=== PATIENT | female | born 1990 | race Caucasian/White ===

== ENCOUNTER 2020-06-12 06:20 | Emergency (ER) | payer MEDICAID, SELFPAY ==
--- NOTE | 2020-06-12 06:48 | ED.SEIZURE ---
HPI - Seizure General Stated Complaint: seizure Time Seen by Provider: 06/12/20 06:48 Source: patient Mode of arrival: ambulatory Limitations: no limitations History of Present Illness HPI Narrative: ran out of carbamezapine x 2 days, missed Neurology appointments has seizures in her sleep, here asking for refills, no other acute isssues, notes she did well when on medications complaint: seizure Onset (ago): hour(s) Description of Episode: loss of consciousness and tonic-clonic movement -: minutes(s) Trauma: No Seizure History: Yes Place: Home Possible Precipitating Event: medication (ran out of her carbamazepine x 2 days) Associated symptoms: denies other symptoms Treatments prior to arrival: none Related Data Previous Rx's Medication Instructions Recorded carbamazepine 200 mg PO BID #60 tab 06/12/20 Allergies Allergy/AdvReac Type Severity Reaction Status Date / Time No Known Allergies Allergy Unknown Verified 06/12/20 06:51 Review of Systems Review of Systems: Constitutional : No Weight loss, No Fever, No Chills, No Fatigue, No Malaise ENT/Mouth : No sore throat, No Rhinorrhea Eyes: No Eye Pain, No Swelling, No Redness Cardiovascular : No Chest Pain, No SOB, No Dyspnea on Exertion, No Orthopnea, No Edema, No Palpitations Respiratory : No Cough, No Sputum, No Wheezing Gastrointestinal : No Nausea, No Vomiting, No Diarrhea, No Constipation, No abdominal Pain Genitourinary : No Dysuria, No Urinary Frequency, No Hematuria, Musculoskeletal : No joint pain, No Myalgias, No Joint Swelling Skin : No Skin Lesions, No rash Neuro : No Weakness, No Numbness, No Dizziness, No Headache Psych : No Anxiety/Panic, No Depression All other systems reviewed and are negative COUNT INCLUDES [facility] Past Medical History Medical History (Updated 06/12/20 @ 06:53 by Marine Vergara DO) Seizure Social History Social History (Updated 06/12/20 @ 06:51 by Mairne Vergara DO) Alcohol intake: never Smoking Status: Never smoker Use of substances other than those prescribed or required for medical reasons: No Advance Directives: No Physical Exam Vital Signs: Appearance: Alert. Oriented X3. No acute distress. Eyes: Pupils equal, round and reactive to light. ENT: Pharynx normal. Neck: Normal inspection. Neck supple. CVS: Normal heart rate and rhythm. Pulses normal. Respiratory: No respiratory distress. Breath sounds normal. Abdomen: Soft and nontender. Skin: Skin warm and dry. Normal skin color. Normal skin turgor. Extremities: No lower extremity edema. No calf ttp Neuro: Oriented X 3. No motor deficit. No sensory deficit. MDM - Seizure MDM Narrative Medical decision making narrative: 29 yo female with hx of seizures in sleep, does well with carbamazepine - denies any illness, injury, states she wants a refill of her medications and Neurology number, no other complaints, at this time no signs of trauma, GCS 15, stable VS, will refill and give number for Neurology Discharge Plan Discharge Clinical Impression: Seizure Patient Disposition: Home, Self-Care Instructions: Epilepsy (ED) Additional Instructions: return to ED for any worsening symptoms or concerns Prescriptions: New carbamazepine 200 mg tablet 200 mg PO BID Qty: 60 RF: 2 Referrals: Fabricio Hong MD [Physician] - 1 week Stand Alone Forms: Work/School Release
[2020-06-12 07:04] VITALS: BP 109/63; PULSE 72; RESP 16; TEMP 36.8; O2SAT 98; BMI 22.8
[2020-06-12] MEDS: carBAMazepine 200 MG TABLET PO (07:10)
== END 2020-06-12 08:04 | disposition home or self-care (01) ==
PROVIDERS: Emergency Provider Emergency Medicine
DX: R56.9 Unspecified convulsions (principal); Z79.899 Other long term (current) drug therapy
CPT/HCPCS: 99283

== ENCOUNTER 2020-08-02 23:11 | Emergency (ER) | payer MEDICAID, SELFPAY ==
--- NOTE | 2020-08-02 23:39 | ED_ITS ---
HPI - General Adult General Chief complaint: General Medical Stated complaint: THROAT/EAR PAIN Time Seen by Provider: 08/02/20 23:30 Source: patient Mode of arrival: ambulatory Limitations: no limitations History of Present Illness HPI narrative: Patient comes in complaining of throat pain. Patient states yesterday she noticed that her tonsils were getting erythematous and painful. This morning patient was very nauseous, patient states that she but her fingers inside her mouth and induced Tab vomit and since then her tonsils have been hurting more. Patient reports fever of 102 at home. Patient denies cough, no ear pain/drainage MD complaint: Throat pain Related Data Previous Rx's Medication Instructions Recorded carbamazepine 200 mg PO BID #60 tab 06/12/20 penicillin V potassium 500 mg PO TID 10 Days #30 tab 08/03/20 Allergies Allergy/AdvReac Type Severity Reaction Status Date / Time No Known Allergies Allergy Unknown Verified 08/02/20 23:48 Review of Systems Review of Systems: Constitutional : No Weight loss, of fever of 102, chills, fatigue ENT/Mouth : No Hearing loss, mild bilateral Ear Pain, No Nasal Congestion, No Sinus Pain, No Hoarseness, complaining of sore throat No Rhinorrhea, No Swallowing Difficulty but does hurt Eyes: No Eye Pain, No Swelling, No Redness, No Foreign Body, No Discharge, No Vision Changes Cardiovascular : No Chest Pain, No SOB, No Dyspnea on Exertion, No Orthopnea, No Edema, No Palpitations Respiratory : No Cough, No Sputum, No Wheezing, No Smoke Exposure, No Dyspnea Gastrointestinal : No Nausea, No Vomiting, No Diarrhea, No Constipation, No abdominal Pain, No Hematochezia, No Melena Genitourinary : no irregular bleeding, No Dysuria, No Urinary Frequency, No Hematuria, No Urinary Incontinence, No Urgency, No Flank Pain, No Urinary Flow Changes, No Hesitancy Musculoskeletal : No joint pain, No Myalgias, No Joint Swelling Skin : No Skin Lesions, No rash Neuro : No Weakness, No Numbness, No Paresthesias, No Loss of Consciousness, No Dizziness, No Headache Psych : No Anxiety/Panic, No Depression, No SI/HI/AH/VH, No Social Issues, Heme/Lymph: No Bruising, No Bleeding,No Lymphadenopathy Endocrine : No Polyuria, No Polydipsia, No Temperature Intolerance [facility] Past Medical History Medical History Seizure Social History Social History (Updated 06/12/20 @ 06:51 by Marine Vergara DO) Alcohol intake: never Smoking Status: Never smoker Use of substances other than those prescribed or required for medical reasons: No Advance Directives: No Physical Exam Vital Signs: Vital Signs: Last Vital Signs Temp 100.0 F 08/02/20 23:41 Pulse 96 08/02/20 23:41 Resp 17 08/02/20 23:41 BP 113/72 08/02/20 23:41 Pulse Ox 98 08/02/20 23:41 Body Mass Index 23.4 Appearance: Alert. Oriented X3. No acute distress. Eyes: Pupils equal, round and reactive to light. ENT: Tonsils with extensive exudate bilaterally, no visible abscess Neck: Neck supple. Mild bilateral lymphadenopathy CVS: Normal heart rate and rhythm. Pulses normal. Normal S1 and S2 Respiratory: No respiratory distress. Breath sounds normal. No Wheezing. No rales Abdomen: Soft and nontender. No rigidity. No distention. good BS x4 Skin: Skin warm and dry. Normal skin color. Normal skin turgor. Extremities: No lower extremity edema. No lower extremity edema. No Lacerations. No Rash Neuro: Oriented X 3. No motor deficit. No sensory deficit. Moving all extermities. No slurred speech. Course Course Course Narrative: I discussed the labs with the patient, sepsis is not suspected at this time, rapid strep and mono were negative, however given the patient's physical exam, we will go ahead and treat with antibiotic Medical Decision Making Lab Data Result diagrams: 08/03/20 00:00 Labs: Lab Results 08/03/20 08/03/20 Range/Units 00:00 00:01 WBC 13.8 H (4.8-10.8) X10*3/uL RBC 3.90 L (4.20-5.50) X10*6/uL Hgb 12.3 (12.0-16.0) g/dl Hct 37.2 (37-47) % MCV 95.4 (80-98) fL MCH 31.5 (27.0-33.0) pg MCHC 33.1 (31.0-35.0) g/dl RDW 12.7 (11.0-16.0) % Plt Count 191 (160-400) X10*3/uL MPV 10.5 (9.4-12.3) fL Immature Gran % (Auto) 0.5 H (0.0-0.4) % Neut % (Auto) 89.5 H (45-73) % Lymph % (Auto) 3.3 L (20-40) % [place] % (Auto) 6.6 (2-11) % Eos % (Auto) 0.0 (0-4) % Baso % (Auto) 0.1 (0-2) % Lymph # (Auto) 0.5 L (1.2-4.9) X10*3/uL [place] # (Auto) 0.9 (0.1-1.2) X10*3/uL Eos # (Auto) 0.0 (0.0-0.4) X10*3/uL Baso # (Auto) 0.0 (0.0-0.2) X10*3/uL Abs Immat Gran (auto) 0.07 H (0.00-0.03) X10*3/uL Absolute Neuts (auto) 12.4 H (2.0-8.3) X10*3/uL Absolute Nucleated RBC 0.000 (0.0-0.012) X10*3/uL Nucleated RBC % (auto) 0.0 (0.0-0.2) /100WBC Smear Tech's Comments VERIFIED Monoscreen Negative (Negative) Discharge Plan Discharge Clinical Impression: Pharyngitis, acute Qualifiers: Pharyngitis/tonsillitis etiology: unspecified etiology Qualified Code(s): J02.9 - Acute pharyngitis, unspecified Patient Disposition: Home, Self-Care Instructions: Pharyngitis (ED) Additional Instructions: If the redness worsens, if he develops fever, if there is any abscess forming in your tonsils, please return to the emergency room or call 911. Please follow-up with your primary care physician tomorrow. If you have any worsening or new symptoms, please return to the emergency room or call 911 Prescriptions: New penicillin V potassium 500 mg tablet 500 mg PO TID 10 Days Qty: 30 RF: 0 No Action carbamazepine 200 mg tablet 200 mg PO BID Qty: 60 RF: 2
[2020-08-02 23:41] VITALS: BP 113/72; PULSE 96; RESP 17; TEMP 37.8; O2SAT 98; BMI 23.4
[2020-08-03 00:08] LABS: Basophils Percent Auto 0.1 % (0-2); Hematocrit 37.2 % (37-47); Hemoglobin 12.3 g/dl (12.0-16.0); Imm Gran Abs Auto 0.07 X10*3/uL (0.00-0.03); Imm Gran Pct Auto 0.5 % (0.0-0.4); Lymphocytes Absolute Auto 0.5 X10*3/uL (1.2-4.9); Lymphocytes Percent Auto 3.3 % (20-40); MANUAL DIFF FLAG SCAN; Mean Corpuscular HGB Conc 33.1 g/dl (31.0-35.0); Mean Corpuscular Hemoglobin 31.5 pg (27.0-33.0); Mean Corpuscular Volume 95.4 fL (80-98); Mean Platelet Volume 10.5 fL (9.4-12.3); Monocytes Absolute Auto 0.9 X10*3/uL (0.1-1.2); Monocytes Percent Auto 6.6 % (2-11); Neutrophils Absolute Auto 12.4 X10*3/uL (2.0-8.3); Neutrophils Percent Auto 89.5 % (45-73); Platelet Count 191 X10*3/uL (160-400); Red Cell Distribution Width 12.7 % (11.0-16.0); SCAN SMEAR FLAG 1; White Blood Count 13.8 X10*3/uL (4.8-10.8)
[2020-08-03 00:13] LABS: SLIDE REVIEW VERIFIED
[2020-08-03 00:39] LABS: Monotest Negative (Negative)
[2020-08-03] MEDS: Penicillin V Potassium 250 MG TABLET 500 MG PO (01:00)
[2020-08-03] MEDS: Lidocaine HCl Viscous 2 % 15 ML SOLUTION MUCOUS MEM (01:01)
[2020-08-03 01:06] VITALS: BP 111/74; PULSE 88; RESP 16; TEMP 37.3; O2SAT 98
[2020-08-03 01:06] LABS: Anion Gap 12 (12-20); Blood Urea Nitrogen 6 mg/dL (9-16); Calcium 8.7 mg/dL (8.4-10.2); Carbon Dioxide 26 mmol/L (22-29); Chloride 102 mmol/L (96-108); Creatinine Clr Calc Pharmacy 89.1; Estimated Glomerular Filt Rate > 60; Glucose Random 102 mg/dL (60-115); Potassium 3.8 mmol/l (3.3-5.1); Sodium 136 mmol/L (135-145)
== END 2020-08-03 01:49 | disposition home or self-care (01) ==
PROVIDERS: Emergency Provider Emergency Medicine
DX: J02.9 Acute pharyngitis, unspecified (principal)
CPT/HCPCS: 36415; 80048; 85025; 86308; 87071; 87880; 96374; 99284; J1100

== ENCOUNTER 2021-01-06 09:47 | Outpatient (REF) | payer MEDICAID, SELFPAY ==
[2021-01-07 06:41] LABS: CT PCR NOT DETECTED (Not Detect.); NG PCR NOT DETECTED (Not Detect.)
[2021-01-07 08:38] LABS: BV Int Neg Control Negative (Negative); BV Int Pos Control Positive (Positive)
[2021-01-11 23:27] LABS: HPV 16 RNA NOT DETECTED (NOT DETECTED); HPV mRNA E6/E7 rflx Detected (Not Detected)
== END 2021-01-06 09:48 | disposition home or self-care (01) ==
LOC: HO.LAB 09:47
PROVIDERS: Visit Provider Advanced Practice Midwife
DX: Z01.419 Encounter for gynecological examination (general) (routine) without abnormal findings (principal); Z11.3 Encounter for screening for infections with a predominantly sexual mode of transmission; Z11.51 Encounter for screening for human papillomavirus (HPV); Z20.2 Contact with and (suspected) exposure to infections with a predominantly sexual mode of transmission; N89.8 Other specified noninflammatory disorders of vagina; B00.1 Herpesviral vesicular dermatitis; Z87.42 Personal history of other diseases of the female genital tract
CPT/HCPCS: 87480; 87491; 87510; 87591; 87624; 87625; 87660; 88142

== ENCOUNTER 2021-02-18 10:17 | Outpatient (REF) | payer MEDICAID, SELFPAY | END 2021-02-18 10:18 | disposition home or self-care (01) | LOC: HO.LAB 10:17 | PROVIDERS: Visit Provider Obstetrics & Gynecology | DX: R87.810 Cervical high risk human papillomavirus (HPV) DNA test positive (principal) | CPT/HCPCS: 57454; 88305 ==

== ENCOUNTER → 2021-03-03 12:43 | Outpatient (BNVA) | payer MEDICAID, SELFPAY | PROVIDERS: Visit Provider Obstetrics & Gynecology ==

== ENCOUNTER 2021-11-18 08:55 | Emergency (ER) | payer MEDICAID, SELFPAY ==
[2021-11-18 09:02] VITALS: BP 139/84; PULSE 87; RESP 18; TEMP 36.3; O2SAT 98; BMI 23.0
[2021-11-18 09:07] VITALS: TEMP 37.3
--- NOTE | 2021-11-18 09:17 | ED.GENADULT ---
HPI - General Adult General Chief complaint: General Medical Stated complaint: diaherra, vomitting Time Seen by Provider: 11/18/21 09:08 Source: patient Mode of arrival: ambulatory Limitations: no limitations History of Present Illness HPI narrative: 31-year-old female with a history of seizures here with 2 days of tactile fever, cough, diarrhea, vomiting, dysuria. Patient denies any abdominal pain, back pain, headache, neck pain or stiffness, rash, difficulty breathing or chest pain. Patient received [employer] 24 vaccine x2. The patient did not receive a flu vaccine Related Data Previous Rx's Medication Instructions Recorded carbamazepine 200 mg tablet 200 mg PO BID #60 tab 06/12/20 metronidazole 500 mg tablet 500 mg PO BID 7 Days #14 tab 01/07/21 (Flagyl) valacyclovir 1 gram tablet 500 mg PO Q12H 3 Days #30 tab 10/13/21 nitrofurantoin 100 mg PO Q12H 5 Days #10 cap 11/18/21 monohydrate/macrocrystals 100 mg capsule (Macrobid) ondansetron 4 mg disintegrating 4 mg PO Q6H PRN #10 tab 11/18/21 tablet Allergies Allergy/AdvReac Type Severity Reaction Status Date / Time No Known Allergies Allergy Unknown Verified 01/06/21 10:14 Review of Systems Review of Systems: Yes all other systems are reviewed and are negative Constitutional: Constitutional: Reports no additional constitutional complaints, Denies body ache(s), Denies chills, Reports fever(s), Denies headache(s) and Denies weakness Eyes: Eyes: Reports no additional eye complaints and Denies change in vision ENT: Reports system reviewed and no additional complaints, except as documented, Denies dizziness, Denies headache(s), Denies nasal congestion, Denies nasal discharge and Denies neck pain Cardiovascular: Cardiovascular: Reports no additional cardiovascular complaints, Denies chest pain, Denies leg edema and Denies dyspnea Respiratory: Respiratory: Reports no additional respiratory complaints, Reports cough and Denies dyspnea Gastrointestinal: Gastrointestinal: Reports no additional gastrointestinal complaints, Denies abdominal pain, Reports diarrhea, Reports nausea and Reports vomiting Genitourinary: Genitourinary: Reports no additional female genitourinary complaints, Reports dysuria and Denies urinary incontinence Musculoskeletal: Musculoskeletal: Reports no additional musculoskeletal complaints, Denies back pain, Denies arthralgias, Denies joint swelling, Denies neck pain, Denies numbness and Denies tingling Integumentary/Breasts: Skin/Breast: Reports system reviewed and no additional complaints, except as docu and Denies rash Neurologic: Reports system reviewed and no additional complaints, except as documented, Denies dizziness, Denies headache(s), Denies numbness, Denies tingling and Denies weakness PMF Past Medical History Attestation statement: The following information was validated with the patient. Source: old records reviewed and nursing notes reviewed Medical History CEZAR II (cervical intraepithelial neoplasia II) Seizure Social History Social History Alcohol intake: never Advance Directives: No Advance Directives Information Provided: No Physical Exam ED Vital Signs: Vital Signs - 24 hr 11/18/21 09:02 11/18/21 09:07 Temperature 97.4 F 99.1 F Pulse Rate 87 Respiratory Rate 18 Blood Pressure 139/84 Pulse Oximetry 98 BMI result Body Mass Index 23.0 Const General: cooperative, healthy appearing and comfortable Orientation/consciousness: patient oriented x3 Limitations: no limitations HENMT Head: Yes normal to inspection Ears: hearing grossly normal bilaterally General nose exam: Normal external nose present Face and sinus: Yes normal facial exam Mouth: Normal oral and palatal mucosa present Throat: Yes posterior oropharynx normal, Yes tonsils normal and Yes uvula midline Eyes General: appearance normal, both eyes and all related structures Pupils: Equal, round and reactive pupils present Neck Neck: Yes normal visual inspection, Yes full ROM, Yes no lymphadenopathy and Yes no meningeal signs Chest Chest palpation & inspection: normal inspection of the chest Resp Effort & Inspection: normal respiratory effort Auscultation: clear to auscultation bilaterally Cardio Rate: regular rate Rhythm: regular rhythm Peripheral pulses: Peripheral pulses 2+ throughout GI Inspection: Yes normal to inspection Palpation (GI): Soft to palpation and nontender General: Yes no CVA tenderness Back/Spine/Pelvis Back: no CVA tenderness Skin General skin exam: no rashes or lesions noted Neuro General: patient oriented x3, moves all extremities and no meningeal signs Cranial nerves: Yes Equal, round and reactive pupils present Extrem General: Yes normal to inspection, Yes no pedal edema and Yes no calf tenderness Course Course Course Narrative: 31 yo female here with tactile temp, cough, vomiting, diarrhea, dysuria for 2 days. No focal abdominal pain on exam. Vitals are stable. Will check COVID, flu testing. Will check UA Reevaluation(s) Reevaluation #1: UA is consistent with UTI. Flu a testing is positive. We discussed Tamiflu. We discussed side effects of vomiting and diarrhea and patient would like to hold on Tamiflu as it may make her symptoms worse. We discussed supportive care at home. Will treat the UTI with antibiotics. Patient is nontoxic appearing. No CVA tenderness concern for pyelonephritis. Afebrile here. Reviewed worrisome signs and symptoms of when to return to the emergency department. Comfortable discharge home. Time: 10:20 Medical Decision Making Medical Records Medical records reviewed: Yes I reviewed the patient's medical records. Lab Data Lab results reviewed: Yes I reviewed the patient's lab results. Labs: Lab Results 11/18/21 11/18/21 11/18/21 Range/Units 09:11 09:11 09:11 Urine Color YELLOW Urine Appearance HAZY Urine pH 6.5 (5.0-8.0) Ur Specific [place] 1.020 (1.005-1.025) Urine Protein 1+ H (NEG-TRACE) MG/DL Urine Glucose (UA) NEG (NEG) MG/DL Urine Ketones NEG (NEG) MG/DL Urine Blood TRACE (NEG) Urine Nitrite NEG (NEG) Ur Leukocyte Esterase 1+ H (NEG) Urine RBC 1-4 (0) /HPF Urine WBC 15-29 H (0-4) /HPF Ur Squamous Epith Cells 1+ /LPF Urine Bacteria 1+ /LPF Urine Test (NEGATIVE) COVID-19 (FELICE) Negative (Negative) COVID-19 Clin Com See Note Influenza Type A (HANS) Positive A (Negative) Influenza Type B (HANS) Negative (Negative) Influenza A & B Note See Note 11/18/21 Range/Units 09:11 Urine Color Urine Appearance Urine pH (5.0-8.0) Ur Specific [place] (1.005-1.025) Urine Protein (NEG-TRACE) MG/DL Urine Glucose (UA) (NEG) MG/DL Urine Ketones (NEG) MG/DL Urine Blood (NEG) Urine Nitrite (NEG) Ur Leukocyte Esterase (NEG) Urine RBC (0) /HPF Urine WBC (0-4) /HPF Ur Squamous Epith Cells /LPF Urine Bacteria /LPF Urine Test NEGATIVE (NEGATIVE) COVID-19 (FELICE) (Negative) COVID-19 Clin Com Influenza Type A (HANS) (Negative) Influenza Type B (HANS) (Negative) Influenza A & B Note Discharge Plan Discharge Clinical Impression: Influenza A, UTI (urinary tract infection) Patient Disposition: Home, Self-Care Instructions: Urinary Tract Infection in Women (DC), Influenza (DC) Additional Instructions: Your testing for flu a is positive. Side effects of Tamiflu are vomiting and diarrhea so we discussed holding this medication Alternate Motrin and Tylenol for pain or fever Increase fluids, rest Prescriptions: New ondansetron 4 mg tablet,disintegrating 4 mg PO Q6H PRN (Reason: nausea and vomiting) Qty: 10 0RF nitrofurantoin monohyd/m-cryst [Macrobid] 100 mg capsule 100 mg PO Q12H 5 Days Qty: 10 0RF Rx Instructions: must administer with a meal/food No Action metronidazole [Flagyl] 500 mg tablet 500 mg PO BID 7 Days Qty: 14 0RF valacyclovir 1 gram tablet 500 mg PO Q12H 3 Days Qty: 30 1RF Rx Instructions: take q 12 hours for 3 days for recurrent outbreaks, prn carbamazepine 200 mg tablet 200 mg PO BID Qty: 60 2RF Referrals: [facility] [Primary Care Provider] - 1 week (for continued symptoms ) Stand Alone Forms: Work/School Release Interventions: ED Discharge Assessment Last Done: 11/18/21 10:30 Discharge Date/Time: 11/18/21 10:31
[2021-11-18 09:20] LABS: Appearance Urine HAZY; Color Urine YELLOW; Glucose Urine UA NEG (NEG); Leukocyte Esterase Urine 1+ (NEG); Nitrite Urine NEG (NEG); PH 6.5 (5.0-8.0); UACC Culture Trigger YES; Urine Blood TRACE (NEG); Urine Ketones NEG (NEG); Urine Protein 1+ MG/DL (NEG-TRACE)
[2021-11-18 09:24] LABS: UPreg QC Valid YES; Urine Pregnancy NEGATIVE (NEGATIVE)
[2021-11-18 09:37] LABS: Squamous Epithelial Cell Urine 1+ /LPF
[2021-11-18 09:38] LABS: Bacteria Urine 1+ /LPF
[2021-11-18 09:54] LABS: COVID-19 Test Negative (Negative); IDNOW Serial# 16C4AD1C; Influenza A Positive (Negative); Influenza B2 Negative (Negative)
== END 2021-11-18 10:31 | disposition home or self-care (01) ==
PROVIDERS: Nurse Practitioner Family; Emergency Provider Emergency Medicine
DX: J10.1 Influenza due to other identified influenza virus with other respiratory manifestations (principal); N39.0 Urinary tract infection, site not specified; R19.7 Diarrhea, unspecified; R50.9 Fever, unspecified; R30.0 Dysuria; Z20.822 Contact with and (suspected) exposure to COVID-19; Z79.899 Other long term (current) drug therapy
CPT/HCPCS: 81001; 81025; 87086; 87088; 87186; 87502; 87635; 99283; 99284

== ENCOUNTER 2022-02-22 11:20 | Outpatient (REF) | payer MEDICAID, SELFPAY ==
[2022-02-22 18:12] LABS: CT PCR NOT DETECTED (Not Detect.); NG PCR NOT DETECTED (Not Detect.)
[2022-02-23 05:26] LABS: HBsAGNum1 0.47 S/CO (0.00-0.99); HIV AB/AG Nonreactive (Nonreactive); HIV Num 1 0.09 S/CO (0.00-0.99); Hepatitis B Surface Antigen Negative (Negative); ~HepC Num1 0.18 S/CO (0.00-0.79); ~Hepatitis C Antibody Nonreactive (Nonreactive)
[2022-02-23 07:04] LABS: Syphilis Screen Nonreactive (Nonreactive)
[2022-02-23 09:29] LABS: BV Int Neg Control Negative (Negative); BV Int Pos Control Positive (Positive)
[2022-03-01 08:26] LABS: HPV 16 RNA NOT DETECTED (NOT DETECTED); HPV mRNA E6/E7 rflx Detected (Not Detected)
== END 2022-02-22 11:21 | disposition home or self-care (01) ==
LOC: HO.LAB 11:20
PROVIDERS: Visit Provider Advanced Practice Midwife
DX: Z01.419 Encounter for gynecological examination (general) (routine) without abnormal findings (principal); Z11.51 Encounter for screening for human papillomavirus (HPV); Z20.2 Contact with and (suspected) exposure to infections with a predominantly sexual mode of transmission
CPT/HCPCS: 36415; 86780; 86803; 87340; 87389; 87480; 87491; 87510; 87591; 87624; 87625; 87660; 88142

== ENCOUNTER 2022-04-05 12:39 | Outpatient (REF) | payer MEDICAID, SELFPAY | END 2022-04-05 12:40 | disposition home or self-care (01) | LOC: HO.LAB 12:39 | PROVIDERS: Visit Provider Obstetrics & Gynecology | DX: B97.7 Papillomavirus as the cause of diseases classified elsewhere (principal) | CPT/HCPCS: 57454; 88305 ==

== ENCOUNTER → 2022-04-19 12:46 | Outpatient (BNVA) | payer MEDICAID, SELFPAY | PROVIDERS: Visit Provider Obstetrics & Gynecology | DX: Z71.2 Person consulting for explanation of examination or test findings (principal) | CPT/HCPCS: 99212 ==

== ENCOUNTER 2022-08-09 15:26 | Emergency (ER) | payer MEDICAID, SELFPAY ==
[2022-08-09 16:47] VITALS: BP 112/68; PULSE 75; RESP 18; TEMP 36.7; O2SAT 98; BMI 24.0
--- NOTE | 2022-08-09 16:48 | ED.SKABFB ---
HPI - Skin/Abscess/Foreign Bdy General Chief complaint: Skin/Abscess/Foreign Body Stated complaint: Abscess on thigh Time Seen by Provider: 08/09/22 16:48 Source: patient Mode of arrival: ambulatory History of Present Illness HPI narrative: 31-year-old female with a past medical history of seizures presenting to the ED complaining of abscess to left thigh x5 days. Reports opening it at home without relief. Admits to increasing pain and redness. Denies known fever, chills, drainage from area, difficulty urinating or having BM MD complaint: abscess/boil Onset (ago): day(s) Related Data Previous Rx's Medication Instructions Recorded carbamazepine 200 mg tablet 200 mg PO BID #60 tabs 06/12/20 valacyclovir 1 gram tablet 500 mg PO Q12H 3 days #30 tabs 10/13/21 ondansetron 4 mg disintegrating 4 mg PO Q6H PRN nausea and 11/18/21 tablet vomiting #10 tabs metronidazole 0.75 % (37.5 mg/5 1 appful vaginal BEDTIME 5 days 02/24/22 gram) vaginal gel #70 grams cephalexin 500 mg capsule 500 mg PO QID 7 days #28 caps 08/09/22 doxycycline hyclate 100 mg tablet 100 mg PO BID 7 days #14 tabs 08/09/22 Allergies Allergy/AdvReac Type Severity Reaction Status Date / Time No Known Allergies Allergy Unknown Verified 04/19/22 12:57 Review of Systems Review of Systems: Constitutional: No Fever, No Chills ENT/Mouth: No Ear Pain, No Nasal Congestion, No sore throat, No Rhinorrhea, No Swallowing Difficulty Cardiovascular: No Chest Pain, No SOB Respiratory: No Cough, No Sputum Gastrointestinal: No Nausea, No Vomiting, No Diarrhea, No Constipation, No Abdominal pain Genitourinary: No Dysuria, No Urinary Frequency, No Hematuria, No Urgency, No Flank Pain Musculoskeletal: No joint pain, No Myalgias, No Joint Swelling Skin: + Skin Lesions, No rash Neuro: No Weakness Yes all other systems are reviewed and are negative Constitutional: Constitutional: Reports as per [facility] Past Medical History Attestation statement: The following information was validated with the patient. Medical History CEZAR II (cervical intraepithelial neoplasia II) Seizure Social History Social History Alcohol intake: never Patient Tobacco Use Status: Never used Tobacco Advance Directives: No Advance Directives Information Provided: No Physical Exam Vital Signs: Vital Signs: Last Vital Signs Temp 98.0 F 08/09/22 16:47 Pulse 75 08/09/22 16:47 Resp 18 08/09/22 16:47 BP 112/68 08/09/22 16:47 Pulse Ox 98 08/09/22 16:47 O2 Del Method 08/09/22 16:47 BMI result Body Mass Index 24.0 Const: General: cooperative, healthy appearing and no acute distress Orientation/consciousness: patient oriented x3 Limitations: no limitations HEENT: Head: Yes normal to inspection and Yes atraumatic Ears: hearing grossly normal bilaterally General nose exam: Normal external nose present Face and sinus: Yes normal facial exam Eyes: General: appearance normal, both eyes and all related structures EOM: EOMs intact bilaterally Neck: Neck: Yes normal visual inspection and Yes no meningeal signs Resp: Effort & Inspection: normal respiratory effort and no respiratory distress Cardio: Rate: regular rate Rhythm: regular rhythm GI: Inspection: Yes normal to inspection Skin: Other: + indurated erythematous abscess noted to left upper posterior thigh with surrounding swelling, erythema and warmth. No fluctuance. No streaking, not circumferential No appreciable genital or anal involvement Rashes: no rashes Neuro: General: patient oriented x3, tone normal and no meningeal signs Gait exam (Neuro): Normal gait present Extrem: General: Yes normal to inspection Medical Decision Making Medical Decision Making MDM Narrative: 31-year-old female with a past medical history of seizures presenting to the ED complaining of abscess to left thigh x5 days. On exam vital signs stable, appears in pain, physical exam as above white indurated abscess to left thigh with surrounding cellulitis. No fluctuance, not circumferential Plan: P.o. antibiotics, warm compresses, close PCP follow-up Differential Diagnosis Differential Diagnoses: The differential diagnosis associated with the presentation includes as above Prescription Management I considered prescription management with: Pain Medication and Antibiotic Discharge Plan Discharge Clinical Impression: Abscess, Cellulitis Patient Disposition: Home, Self-Care Instructions: Cellulitis (ED), Abscess (ED) Additional Instructions: Doxycycline and Keflex for antibiotics please take as prescribed. Please apply warm compresses at home Take Tylenol and Motrin for pain Please have close follow-up with her PCP in 2 days for re-evaluation If area begins to look larger, is open and draining, you fever/it is spreading or unbearably painful return to the emergency department Prescriptions: New cephalexin 500 mg capsule 500 mg PO QID 7 Days Qty: 28 0RF doxycycline hyclate 100 mg tablet 100 mg PO BID 7 Days Qty: 14 0RF No Action valacyclovir 1 gram tablet 500 mg PO Q12H 3 Days Qty: 30 1RF Rx Instructions: take q 12 hours for 3 days for recurrent outbreaks, prn metronidazole 0.75 % gel 1 appful vaginal BEDTIME 5 Days Qty: 70 0RF carbamazepine 200 mg tablet 200 mg PO BID Qty: 60 2RF ondansetron 4 mg tablet,disintegrating 4 mg PO Q6H PRN (Reason: nausea and vomiting) Qty: 10 0RF Referrals: [facility] [Primary Care Provider] - 2 days Stand Alone Forms: Work/School Release
== END 2022-08-09 16:58 | disposition home or self-care (01) ==
PROVIDERS: Emergency Provider Student in an Organized Health Care Education/Training Program
DX: L02.416 Cutaneous abscess of left lower limb (principal); L03.116 Cellulitis of left lower limb
CPT/HCPCS: 99282; 99283

== ENCOUNTER 2022-11-28 09:51 | Outpatient (REF) | payer MEDICAID, SELFPAY ==
[2022-11-28 12:12] LABS: Anion Gap 13 (12-20); Carbon Dioxide 25 mmol/L (22-29); Chloride 106 mmol/L (96-108); Potassium 4.6 mmol/L (3.3-5.1); Sodium 139 mmol/L (135-145)
[2022-11-28 12:37] LABS: Carbamazepine Tegretol 7.9 mcg/mL (5.0-12.0)
== END 2022-11-28 09:52 | disposition home or self-care (01) ==
LOC: HO.LAB 09:51
PROVIDERS: Visit Provider Psychiatry & Neurology Neurology
DX: G40.909 Epilepsy, unspecified, not intractable, without status epilepticus (principal)
CPT/HCPCS: 36415; 80051; 80156

== ENCOUNTER 2024-01-24 13:24 | Outpatient (REF) | payer MEDICAID, SELFPAY ==
[2024-01-24 14:45] LABS: Anion Gap 9 (12-20); Carbon Dioxide 29 mmol/L (22-29); Chloride 105 mmol/L (96-108); Potassium 3.4 mmol/L (3.3-5.1); Sodium 140 mmol/L (135-145)
[2024-01-24 14:48] LABS: Carbamazepine Tegretol 7.2 mcg/mL (5.0-12.0)
== END 2024-01-24 13:25 | disposition home or self-care (01) ==
LOC: HO.LAB 13:24
PROVIDERS: Visit Provider Psychiatry & Neurology Neurology
DX: G40.909 Epilepsy, unspecified, not intractable, without status epilepticus (principal)
CPT/HCPCS: 36415; 80051; 80156

== ENCOUNTER 2024-10-08 13:38 | Outpatient (REF) | payer MEDICAID, SELFPAY ==
--- OUTSIDE RECORDS SUMMARY | 2024-10-08 18:13 | XMS_ITS | Clinical Summary ---
Author Organization [facility] Address [address] [place] [address] Care Team Providers Care Grade Recorder Name Role Phone Unavailable Primary Care Provider [...] Description 08/19/2024 2:00 PM EST Office Visit [facility] [address] [place], [place] [phone] Leighann Ordonez ANP Seizure disorder (CMS/HCC) (Primary Dx); Herpes 08/02/2024 Telephone [facility] [address] [place] [address] Arben Padilla MD New patient [...] Description 10/21/2024 1:00 PM EDT Office Visit [facility] [address] [place] [address] Tiera Shankar MD [address] [place] [address] Health Maintenance Due Date Last Done Comments [...] C Antibody (02/22/2022 11:49 AM EDT) Pathologist [facility] Hepatitis C Antibody Nonreactive Nonreactive [facility] Comment: Antibodies to HCV not [...] detection of this assay. ?? [employer] Trouble [employer] HIV Ag/Ab Combo assay result and supplemental assay results should be interpreted in conjunction with the patient's clinical presentation, history and other laboratory results. ??If the results are inconsistent with clinical evidence, additional testing is suggested to confirm the result. Hepatitis B Surface Antigen Negative Negative [facility] 02/22/2022 11:4 9 AM EDT Gabi CarterSeneca HISTORICAL/NON ORDERABLE LABS Fi nal Result [facility] [address] [place] [address], * (ABNORMAL) HPV E6/E7 RFLX ALTON 16 18/45 (02/22/2022 11:20 AM EDT) HPV 16 RNA NOT DETECTED NOT DETECTED [facility] HPV 18/45 RNA NOT DETECTED NOT DETECTED [facility] Comment: Methodology: Manager Drug Mediated Amplification Cervical sources are required for HPV testing. If a vaginal source from a patient who has had a total hysterectomy with removal of cervix was submitted, please contact the testing laboratory for alternative testing options. THIS TEST WAS PERFORMED AT: [facility] [facility] [employer] [address] [place] [address],[place], [place] ??[phone] ORA YOUNG MD HPV mRNA E6/E7 rflx Detected(A) Not Detected [facility] Comment: Methodology: Manager Drug-Mediated Amplification This assay detects E6/E7 viral messenger RNA (mRNA) from 14 high-risk HPV types (16,18,31,33,35,39,45,51,52,56,58,59,66,68). Cervical sources are required for HPV testing. If a vaginal source from a patient who has had a total hysterectomy with removal of cervix was submitted, please contact the testing laboratory for alternative testing options. For additional information, please refer to http://education.[employer]hub/faq/LOS273h5 (This link if provided for information/ educational purposes only.) THIS TEST WAS PERFORMED AT: [facility] [address] [place] [address],[address] [place], [place] ??[phone] ORA YOUNG MD 02/22/2022 11:2 0 AM EDT us Gabi Seneca HISTORICAL/NON ORDERABLE LABS Fi nal Result [facility] [address] [place] [phone], from Last 3 Months or Most Recently Relevant to Health Maintenance [facility]
[2024-10-09 11:52] LABS: CT PCR NOT DETECTED (Not Detect.); NG PCR NOT DETECTED (Not Detect.)
[2024-10-09 14:53] LABS: Bacterial Vaginosis PCR POSITIVE (Negative); Candida Group PCR NOT DETECTED (Not Detect); Candida glab krusei PCR NOT DETECTED (Not Detect); Trichomonas vaginalis PCR NOT DETECTED (Not Detect)
[2024-10-11 14:49] LABS: HPV Genotype 16 Negative (Negative); HPV Genotype 18 Negative (Negative); HPV High Risk Negative (Negative)
== END 2024-10-08 13:39 | disposition home or self-care (01) ==
LOC: HO.LNP 13:38
PROVIDERS: Visit Provider Obstetrics & Gynecology
DX: Z01.419 Encounter for gynecological examination (general) (routine) without abnormal findings (principal); Z20.2 Contact with and (suspected) exposure to infections with a predominantly sexual mode of transmission; B96.89 Other specified bacterial agents as the cause of diseases classified elsewhere; N76.0 Acute vaginitis; B97.7 Papillomavirus as the cause of diseases classified elsewhere
CPT/HCPCS: 81515; 87491; 87591; 87626; 88175; 99212; 99395; 99459

== ENCOUNTER 2024-10-08 13:38 | Outpatient (AMB) | payer MEDICAID, SELFPAY ==
--- NOTE | 2024-10-08 13:46 | A.OFFVIS_ITS ---
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 Complaining of vaginal discharge associated with foul odor with no vulvovaginal itching Last Pap/HPV was in 02/25 was negative/HPV positive, colpo/biopsy/ECC was negative, the patient has history of CEZAR 2 status post LEEP in 2017 [facility] Medical History Hx of CEZAR II (cervical intraepithelial neoplasia II) Seizure Surgical History Hx of tubal ligation Social History Household Members: Children Housing: Apartment Alcohol intake: current Alcohol intake frequency: a few times a month Patient Tobacco Use Status: Never used Tobacco Current occupational status: employed Current occupation: [employer] Sexually active: No Sexual orientation: Straight/Heterosexual Gender identity: Female Female Reproductive History Menstrual Age of Menarche: 9 Duration of menses: 3-5 days Date of last menstrual period: 09/10/24 Total pregnancies: 4 Full term: 2 Number of Living Children: 2 Ab induced: 2 Date of last pap smear: 02/23/22 History of abnormal pap smear: Yes (HPV +) Review of Systems Const All systems reviewed & are unremarkable except as noted in HPI and below Card Reports as per HPI Resp Reports as per HPI GI Reports as per HPI and Reports no additional complaints Reports as per HPI Physical Exam Vital Signs: Last Vital Signs BP 98/64 10/08/24 13:51 BMI result Body Mass Index 22.3 Const General: cooperative, healthy appearing and comfortable Chest Chest palpation & inspection: normal inspection of the chest and normal palpation of entire chest wall Breast/axilla inspection: normal inspection of the breasts and normal inspection of the axillae Breast/axilla palpation: normal palpation of the breasts, normal palpation of the axillae and no axillary lymphadenopathy Resp Effort & Inspection: normal respiratory effort Auscultation: clear to auscultation bilaterally Percussion: percussion normal Cardio Palpation: normal PMI Rate: regular rate Rhythm: regular rhythm Heart sounds: no murmurs and no rubs Peripheral pulses: Peripheral pulses 2+ throughout GI Inspection: Yes normal to inspection Palpation (GI): Soft to palpation, nontender, no guarding, not rigid and No hepatosplenomegaly present Percussion: Yes normal to percussion Auscultation: normal bowel sounds Rectal Exam - Female: deferred General: Yes bladder normal to palpation External Female Exam: No lesion Speculum Exam - Vagina: normal appearance of the vagina, normal palpation, normal vaginal discharge and not erythematous Speculum Exam - Cervix: normal appearance of the cervix and normal palpation Bimanual exam- vagina & uterus: normal bimanual exam, normal palpation, uterine size normal, bladder normal to palpation, consistency normal and normal palpation Bimanual Exam- Adnexa, other: normal adnexae, no masses and no tenderness Assessment & Plan Assessment & Plan (1) Well woman exam with routine gynecological exam: Code(s): Z01.419 - Encounter for gynecological examination (general) (routine) without abnormal findings Category: Medical Plan: Cotesting done. Counseled the patient about the recommended dietary allowance of 1000 mg of Calcium & 600 IU of vitamin D. The patient was instructed to perform monthly self-breast exams and to schedule an annual exam in a year; All questions answered and the patient verbalized understanding. Instructed the patient to schedule annual exam in a year (2) Bacterial vaginosis: Code(s): N76.0 - Acute vaginitis; B96.89 - Other specified bacterial agents as the cause of diseases classified elsewhere Category: Medical Plan: GC and chlamydia cultures with BV panel taken. Per CDC recommendation, will screen for STI, HepBs Ag, HIV, RPR, Hep C Ab ordered. Will treat with Flagyl 500 mg p.o. b.i.d. x 7 days, Instructions given to the patient to refrain from sexual activity or to use condoms consistently and correctly during the BV treatment regimen, not to douch, it might increase the risk for relapse, and to call if symptoms persist or recur. Orders: Orders HIV Ab/Ag Today B96.89 - Other specified bacterial agents as the cause of diseases classified elsewhere, N76.0 - Acute vaginitis Syphilis Screen Today 96.89 - Other specified bacterial agents as the cause of diseases classified elsewhere, N76.0 - Acute vaginitis Hepatitis B Surface Antigen Today .89 - Other specified bacterial agents as the cause of diseases classified elsewhere, N76.0 - Acute vaginitis Hepatitis C Antibody Today .89 - Other specified bacterial agents as the cause of diseases classified elsewhere, N76.0 - Acute vaginitis Medications: New metronidazole 500 mg PO BID 7 days 14 tabs 0RF Coding Level of Care Code Est Pt Level 3 (70031) Est Pt Prev Care 18-39y(06647) Diagnoses Well woman exam with routine gynecological exam Z01.419 Bacterial vaginosis N76.0; B96.89
[2024-10-08 13:51] VITALS: BP 98/64; BMI 22.3
--- OUTSIDE RECORDS SUMMARY | 2024-10-08 17:10 | XMS_ITS | Clinical Summary ---
Author Organization [facility] Address [address] [place] [address] Care Team Providers Care Manager Erp Name Role Phone Unavailable Primary Care Provider Unavailabl e Allergies No known active allergies Medications carBAMazepine (TEGretol) 200 MG tabletIndication s:Seizure disorder (CMS/HCC) Take 1 tablet (200 mg) by mouth 2 times daily. 60 tablet 1 08/19/2024 Active valACYclovir (Valtrex) 500 MG tabletIndication s:Herpes Take 1 tablet (500 mg) by mouth 2 times daily. For 3 days per flare 18 tablet 08/19/2024 Active Active Problems Problem Noted Date Diagnosed Date Herpes 08/19/2024 Rubella non-immune status, antepartum 08/19/2024 Epilepsy 08/19/2024 Angioedema 08/19/2024 Urticaria 08/19/2024 COVID-19 08/19/2024 Seizure disorder 12/06/2012 Encounters Date Type Department Care Team Description 08/19/2024 2:00 PM EST Office Visit [facility] [address] [place], [place] [phone] Leighann Ordonez ANP Seizure disorder (CMS/HCC) (Primary Dx); Herpes 08/02/2024 Telephone [facility] [address] [place] [address] Arben Padilla MD New patient appt. from Last 3 Months Immunizations Name Administration Dates Next Due Influenza, IIV3, injectable 05/25/2023 MMR 08/17/2023 RSV Bivalent 07/06/2023 Tdap 05/25/2023 Family History Medical History Relation Name Comments Diabetes Maternal Grandmother Relation Name Status Comments Maternal Grandmother Social History Tobacco Use Types Packs/Day Years Used Date Smoking Tobacco: Never Smokeless Tobacco: Never Tobacco Cessation:Counseling Given: No Comments No Sex and Gender Information Value Date Recorded Sex Assigned at Female 06/06/2022 10:14 AM EDT Legal Sex Female 10:14 AM EDT Gender Identity Female 08/02/2024 1:23 PM EST Sexual Orientation Straight 08/19/2024 12 :34 PM EST Last Filed Vital Signs Vital Sign Reading Time Taken Comments Blood Pressure 113/66 08/19/2024 2:14 PM EST Pulse 70 08/19/2024 2:14 PM EST Temperature 36.6 ??C (97.9 ??F) 08/19/2024 2:14 PM ES T Respiratory Rate 16 08/19/2024 2:14 PM EST Oxygen Saturation 99% 08/19/2024 2:14 PM EST Inhaled Oxygen Concentration - - Weight 54.9 kg (121 lb) 08/19/2024 2:14 PM EST Height - - Body Mass Index - - Plan of Treatment Upcoming Encounters Date Type Department Care Team (Late st Contact Info) Description 10/21/2024 1:00 PM EDT Office Visit [facility] [address] [place] [address] Tiera Shankar MD [address] [place] [address] Health Maintenance Due Date Last Done Comments Depression Screening 1988 SDOH Screening 1988 Alcohol/Substance Use Screening 2000 Family Planning (PISQ) 2003 Hepatitis B Vaccines (1 of 3 - 19+ 3-dose series) 2007 Pap Smear 2009 COVID-19 Vaccine ( season) 2024 01/23/2021, 01/02/2021 Influenza Vaccine (#1) 2024 05/25/2023 Tobacco Screening 08/19/2025 08/19/2024 Cervical Cancer Screening 02/22/2027 HPV/Cotest 02/22/2027 02/22/2022, 0704/2022, 06/12/2019, Additional history exists DTaP/Tdap/Td Vaccines (2 - Td or Tdap) 05/25/2033 05/25/2023 Zoster Vaccines (1 of 2) 2038 RSV Patients and Patients Aged 60 years or older (1 - 1-dose 75+ series) 2063 07/06/2023 HIV Screening Completed 02/22/2022 Hepatitis C Screening Completed 02/22/2022 HIB Vaccines Aged Out No longer eligi ble based on patient's age to complete this topic HPV Vaccines Aged Out No longer eligi ble based on patient's age to complete this topic Hepatitis A Vaccines Aged Out No long er eligible based on patient's age to complete this topic IPV Vaccines Aged Out No longer eligi ble based on patient's age to complete this topic Meningococcal Vaccine Aged Out No shan fredi eligible based on patient's age to complete this topic Pneumococcal Vaccine: Pediatrics (0 to 5 Years) and At-Risk Patients (6 to 49) Years) Aged Out No longer eligible based on patient's age to complete this topic RSV under 20 months Aged Out No longe r eligible based on patient's age to complete this topic Rotavirus Vaccines Aged Out No longer eligible based on patient's age to complete this topic Procedures Procedure Name Priority Date/Time Associated Diagnosis Comments [facility] HISTORICAL HEPATITIS C ANTIBODY Routine 02/22/2022 11:49 AM EDT QUEENIE HISTORICAL HPV E6/E7 RFLX ALTON 16 18/45 Routine 02/22/2022 11:20 AM EDT from Last 3 Months or Most Recently Relevant to Health Maintenance Results * Hepatitis C Antibody (02/22/2022 11:49 AM EDT) Pathologist [facility] Hepatitis C Antibody Nonreactive Nonreactive [facility] Comment: Antibodies to HCV not detected; does not exclude early acute HCV infection. HIV AB/AG Nonreactive Nonreactive [facility] Comment: HIV-1 p24 Ag and/or HIV-1/HIV-2 Ab not detected. ?? A test result that is nonreactive does not exclude the possibility of exposure to or infection with HIV-1 and/or HIV-2. Nonreactive results in this assay for individuals with prior exposure to HIV-1 and/or HIV-2 may be due to antigen and antibody levels that are below the limit of detection of this assay. ?? [employer] Sales[employer] HIV Ag/Ab Combo assay result and supplemental assay results should be interpreted in conjunction with the patient's clinical presentation, history and other laboratory results. ??If the results are inconsistent with clinical evidence, additional testing is suggested to confirm the result. Hepatitis B Surface Antigen Negative Negative [facility] 02/22/2022 11:4 9 AM EDT Gabi CarterTibbie HISTORICAL/NON ORDERABLE LABS Fi nal Result [facility] [address] [place] [address], * (ABNORMAL) HPV E6/E7 RFLX ALTON 16 18/45 (02/22/2022 11:20 AM EDT) HPV 16 RNA NOT DETECTED NOT DETECTED [facility] HPV 18/45 RNA NOT DETECTED NOT DETECTED [facility] Comment: Methodology: Heart Nurse Mediated Amplification Cervical sources are required for HPV testing. If a vaginal source from a patient who has had a total hysterectomy with removal of cervix was submitted, please contact the testing laboratory for alternative testing options. THIS TEST WAS PERFORMED AT: [facility] [employer] [address] [place] [address],[place], [place] ??[phone] ORA YOUNG MD HPV mRNA E6/E7 rflx Detected(A) Not Detected [facility] Comment: Methodology: Heart Nurse-Mediated Amplification This assay detects E6/E7 viral messenger RNA (mRNA) from 14 high-risk HPV types (16,18,31,33,35,39,45,51,52,56,58,59,66,68). Cervical sources are required for HPV testing. If a vaginal source from a patient who has had a total hysterectomy with removal of cervix was submitted, please contact the testing laboratory for alternative testing options. For additional information, please refer to http://education.[employer]/faq/PEC083s2 (This link if provided for information/ educational purposes only.) THIS TEST WAS PERFORMED AT: [facility] [employer] [facility] [address] [place] [address],[address] [place], [place] ??[phone] ORA YOUNG MD 02/22/2022 11:2 0 AM EDT us Gabi Tibbie HISTORICAL/NON ORDERABLE LABS Fi nal Result [facility] [address] [place] [phone], from Last 3 Months or Most Recently Relevant to Health Maintenance [facility]
== END 2024-10-08 14:41 | disposition home or self-care (01) ==
LOC: HO.HWS 13:38
PROVIDERS: Visit Provider Obstetrics & Gynecology
DX: Z01.419 Encounter for gynecological examination (general) (routine) without abnormal findings (principal); N76.0 Acute vaginitis; B96.89 Other specified bacterial agents as the cause of diseases classified elsewhere
CPT/HCPCS: 99213; 99395; 99459

== ENCOUNTER 2024-10-21 13:27 | Outpatient (REF) | payer MEDICAID, SELFPAY ==
--- OUTSIDE RECORDS SUMMARY | 2024-10-21 15:37 | XMS_ITS | Encounter Summary ---
Author Organization [employer] Address [address] [facility] 7t [place] [address] Care Team Providers Care Dancer Or Choreographer Name Role Phone Tiera Shankar MD Primary Care Provider [phone] Reason for Visit * Reason Comments New Patient Encounter Details Date Type Department Care Team ([facility] st Contact Info) Description 10/21/2024 1:00 PM EDT Office Visit [facility] [address] [place], [place] [phone] Tiera Shankar MD [address] [place] [address] Seizure disorder (CMS/HCC) (Primary Dx); Screening examination for STI Social History Tobacco Use Types Packs/Day Years Used Date Smoking Tobacco: Never Smokeless Tobacco: Never Tobacco Cessation:Counseling Given: Not Answered Alcohol Answer Date Recorded How often do you have a drink containing alcohol ? 1 10/21/2024 How many drinks containing a lcohol do you have on a typical day when you are drinking? 0 10/21/2024 How often do you have six or more drinks on one occasion? 0 10/21/2024 Depression Answer Date Recorded Patient Health Questionnaire-9 Score 0 10/21/2024 Patient Health Questionnaire-9 Score 0 10/21/2024 Last PHQ-9: Questionnaire Data Not on file 0 10/21/2024 Housing Stability Answer Date Recorded What is your housing situation today? I have lukas tucker 10/14/[address] you li ve. Do you have problems with any of the following? None of the above 10/14/2024 Food Insecurity Answer Date Recorded Within the past 12 months, y ou worried that your food would run out before you got money to buy more: Never True 10/14/2024 Within the past 12 months,th e food you bought just didn't last and you didn't have enough money to get more: Never True 05/2025 Transportation Answer Date Recorded In the past 12 months, has l ack of transportation kept you from medical appts, meetings, work or from getting things needed for daily living? No 10/14/2024 Intimate Partner Violence Answer Date R ecorded Within the last year, have y ou been afraid of your partner or ex-partner? 2 10/21/2024 Within the last year, have y ou been humiliated or emotionally abused in other ways by your partner or ex-partner? 2 Within the last year, have y ou been kicked, hit, slapped, or otherwise physically hurt by your partner or ex-partner? 2 10/21/2024 Within the last year, have y ou been raped or forced to have any kind of sexual activity by your partner or ex-partner? 2 10/21/2024 Utilities Answer Date Recorded In the past 12 months, has t he [employer], gas, oil or water [employer] threatened to shut off services in your home? No 10/14/2024 Depression Answer Date Recorded Patient Health Questionnaire-2 Score 0 10/21/2024 Internet Access Answer Date Recorded Internet Access Q1 Yes 10/14/2024 Internet Access Q2 Not on file 10/14/2024 Comments No Sex and Gender Information Value Date Recorded Sex Assigned at Female 06/06/2022 10:14 AM EDT Legal Sex Female 10:14 AM EDT Gender Identity Female 08/02/2024 1:23 PM EST Sexual Orientation Straight 08/19/2024 12 :34 PM EST documented as of this encounter Last Filed Vital Signs Vital Sign Reading Time Taken Comments Blood Pressure 108/61 10/21/2024 12:57 PM EDT Pulse 67 10/21/2024 12:57 PM EDT Temperature 36.6 ??C (97.8 ??F) 10/21/2024 12:57 PM E DT Respiratory Rate 16 10/21/2024 12:57 PM EDT Oxygen Saturation 99% 10/21/2024 12:57 PM EDT Inhaled Oxygen Concentration - - Weight 55.8 kg (123 lb) 10/21/2024 12:57 PM EDT Height 157.5 cm (5' 2 ) 10/21/2024 12:57 PM EDT Body Mass Index 22.5 10/21/2024 12:57 PM EDT documented in this encounter Progress Notes * Tiera Shankar MD - 10/21/2024 1:00 PM EDT Subjective: Kitty Juarez is a 34 y.o. female who presents to the office for a new patient visit. Previous PCP Name. Interim history: 10/01 [place] seizure f/u, continue carbamazepine Current concerns: Seizures Patient Active Problem List Diagnosis Herpes Rubella non-immune status, antepartum Epilepsy (CMS/HCC) Seizure disorder (CMS/HCC) Angioedema Urticaria COVID-19 Screening examination for STI Past Surgical History: Procedure Laterality Date SECTION, UNSPECIFIED Family History Problem Relation Name Age of Onset Diabetes Maternal Grandmother Social History Living situation: with 18 year old and 1 year old son Employment/Education: [employer] Diet/exercise: nothing in particular Substance use: -alcohol -tobacco -opioids Sexual activity: AMAB partner Contraception: BTL Mental health: none Patient's last menstrual period was 10/21/2024 (approximate). No Known Allergies Review of Systems Constitutional: Negative. Respiratory: Negative. Cardiovascular: Negative. Gastrointestinal: Negative. Musculoskeletal: Negative. Psychiatric/Behavioral: Negative. Visit Vitals BP 108/61 (BP Location: Right arm, Patient Position: Sitting, BP Cuff Size: Adult) Pulse 67 Temp 97.8 ??F (36.6 ??C) (Temporal) Resp 16 Ht 5' 2 (1.575 m) Wt 123 lb (55.8 kg) LMP 10/21/2024 (Approximate) SpO2 99% BMI 22.50 kg/m?? OB Status Having periods Smoking Status Never BSA 1.56 m?? Physical Exam Vitals and nursing note reviewed. Constitutional: Appearance: Normal appearance. HENT: Head: Normocephalic and atraumatic. Cardiovascular: Rate and Rhythm: Normal rate and regular rhythm. Pulses: Normal pulses. Heart sounds: Normal heart sounds. Pulmonary: Effort: Pulmonary effort is normal. Breath sounds: Normal breath sounds. Skin: General: Skin is warm and dry. Neurological: General: No focal deficit present. Mental Status: She is alert and oriented to person, place, and time. Psychiatric: Mood and Affect: Mood normal. Behavior: Behavior normal. Problem List Items Addressed This Visit Seizure disorder (CMS/HCC) - Primary Screening examination for STI Relevant Orders Comprehensive Metabolic Panel Lipid Panel, Standard HIV-1/2 Antigen and Antibodies, Fourth Generation, with Reflexes Hepatitis C Antibody with Reflex to HCV, RNA, Quantitative, Real-Time PCR Chlamydia/N. Gonorrhoeae RNA, TMA, Urogenitial RPR (Monitor) with Reflex to Titer Routine Health Maintenance Optometry: Dental: established with dental home no, referred upstairs Outstanding IZ: Hep B, Flu, COVID-19 Routine Cancer Screening Breast CA: Routine mammograms starting at 45 y/o per ACS Cervical CA: Shared decision-making ACS vs USPSTF guidelines. -ACS guidelines: HPV testing (alone) every 5 years 25-65 y/o -USPSTF: age 21-29 pap [id number], age 30-65 co-testing OR HPV alone Q5 years, or cytology alone Q3 years Colon CA: routine screening starting at 45-75 years old per ACS -Colonoscopy every 10 years -CT colonography or flex sig every 5 years -Stool DNA test/Cologuard every 3 years -FIT annually Lung CA: Age 50-80 with 20-year pack history send for low-dose CT per USPSTF Current Outpatient Medications Medication Sig Dispense Refill carBAMazepine (TEGretol) 200 MG tablet Take 1 tablet (200 mg) by mouth 2 times daily. 60 tablet 1 valACYclovir (Valtrex) 500 MG tablet Take 1 tablet (500 mg) by mouth 2 times daily. For 3 days per flare 18 tablet 0 No current facility-administered medications for this visit. Immunization History Administered Date(s) Administered Influenza, IIV3, injectable 05/25/2023 MMR 08/17/2023 Pfizer Covid-19 Vaccine 12+ 01/02/2021, 01/23/2021 RSV Bivalent 07/06/2023 Tdap 05/25/2023 documented in this encounter Plan of Treatment Scheduled Orders Name Type Priority Associated Diagnoses Orde r Schedule Comprehensive Metabolic Panel Lab Routine Screening examination for STI Expected: 10/21/2024 (Approximate), Expires: 10/21/2025 Lipid Panel, Standard Lab Routine Screening examination for STI Expected: 10/21/2024 (Approximate), Expires: 10/21/2025 HIV-1/2 Antigen and Antibodies, Fourth Generation, with Reflexes Lab Routine Screening examination for STI Expected: 10/21/2024 (Approximate), Expires: 10/21/2025 Hepatitis C Antibody with Reflex to HCV, RNA, Quantitative, Real-Time PCR Lab Routine Screening examination for STI Expected: 10/21/2024, Expires: 10/21/2025 Chlamydia/N. Gonorrhoeae RNA, TMA, Urogenitial Microbiology Routine Screening examination for STI Expected: 10/21/2024 (Approximate), Expires: 10/21/2025 RPR (Monitor) with Reflex to??Titer Lab Routine Screening examination for STI Expected: 10/21/2024, Expires: 10/21/2025 documented as of this encounter Visit Diagnoses Diagnosis Seizure disorder (CMS/HCC)- Primary Unspecified epilepsy without mention of intractable epilepsy Screening examination for STI documented in this encounter Additional Health Concerns Assessment Noted Time PHQ-9 Depression Total Score: 0 10/22/19 1:01 PM EDT documented as of this encounter Care Teams Dancer Or Choreographer Relationship Specialty Start Date End Date Tiera Shankar MD [address] [place] [phone] PCP - General Family Medicine 10/21/24 documented as of this encounter
--- OUTSIDE RECORDS SUMMARY | 2024-10-21 15:37 | XMS_ITS | Encounter Summary ---
Author Organization [employer] Address 75 [facility] 7t [place] [address] Care Team Providers Care Magistrate Assistant Name Role Phone Tiera Shankar MD Primary Care Provider [phone] Encounter Details Date Type Department Care Team (Latest Contact Info) Description 10/21/2024 Travel Social History Tobacco Use Types Packs/Day Years Used Date Smoking Tobacco: Never Smokeless Tobacco: Never Alcohol Answer Date Recorded How often do [...] the past 12 months, has t he electric, gas, oil or water company threatened to shut off services in your [...] PM EST documented as of this encounter Plan of Treatment Not on file documented as of this encounter Visit Diagnoses Not on filedocumented in this encounter Additional Health Concerns Assessment Noted Time PHQ-9 Depression Total Score: 0 10/22/19 25 1:01 PM EDT documented as of this encounter Care Teams Magistrate Assistant Relationship Specialty Start Date End Date Tiera Shankar MD [address] [place] [phone] PCP - General Family Medicine 10/21/24 documented as of this encounter
--- OUTSIDE RECORDS SUMMARY | 2024-10-21 15:37 | XMS_ITS | Encounter Summary ---
Author Organization [employer] Address [address] [facility] 7t [place] [address] Care Team Providers Care Waiver Analyst Name Role Phone Unavailable Primary Care Provider Unavailabl e Encounter Details Date Type Department Care Team ([facility] st Contact Info) Description 10/18/2024 Population Health Risk Score [facility] Care [facility] (C3) Department [address] [facility] [address] [place] [phone] Provider, Population Health Generic Social History Tobacco Use Types Packs/Day Years Used Date Smoking Tobacco: Never Smokeless Tobacco: Never Housing Stability Answer Date Recorded What is your housing situation today? I have lukaswillow tucker 10/14/[address] you [...] things needed for daily living? No 10/14/2024 Utilities Answer Date Recorded In the past 12 months, has t he electric, gas, oil or water company threatened to shut off services in your home? No 10/14/2024 Internet Access Answer Date Recorded Internet Access [...]
--- OUTSIDE RECORDS SUMMARY | 2024-10-21 15:37 | XMS_ITS | Encounter Summary ---
Author Organization [employer] Address [address] [facility] 7t [place] [address] Care Team Providers Care Spray Dyer Name Role Phone Unavailable Primary Care Provider Unavailabl e Encounter Details Date Type Department Care Team (Latest Contact Info) Description 10/20/2024 Travel Social History Tobacco Use Types Packs/Day [...]
--- OUTSIDE RECORDS SUMMARY | 2024-10-21 15:37 | XMS_ITS | Clinical Summary ---
Author Organization [facility] Address [address] [facility] 7t [place] [address] Care Team Providers Care Nut Threader Name Role Phone Tiera Shankar MD Primary Care Provider [phone] Allergies No known active allergies Medications carBAMazepine (TEGretol) 200 MG tabletIndication s:Seizure disorder (CMS/HCC) Take 1 tablet (200 mg) by mouth 2 times daily. 60 tablet 1 08/19/2024 Active valACYclovir (Valtrex) 500 MG tabletIndication s:Herpes Take 1 tablet (500 mg) by mouth 2 times daily. For 3 days per flare 18 tablet 08/19/2024 Active Active Problems Problem Noted Date Diagnosed Date Screening examination for STI 10/21/2024 Herpes 08/19/2024 Rubella non-immune status, antepartum 08/19/2024 Epilepsy 08/19/2024 Angioedema 08/19/2024 Urticaria 08/19/2024 COVID-19 08/19/2024 Seizure disorder 12/06/2012 Encounters Date Type Department Care Team Description 10/21/2024 1:00 PM EDT Office Visit [facility] [address] [place], [place] [phone] Tiera Shankar MD Seizure disorder (CMS/HCC) (Primary Dx); Screening examination for STI 10/21/2024 Travel 10/20/2024 Travel 10/18/2024 Population Health Risk Score [facility] (C3) Department 75 [facility] 7 [place] [phone] Provider, Population Health Generic 10/14/2024 Patient Outreach [facility] [address] [place], [place] [phone] Tiera Shankar MD Pre-visit Planning (SDOH screening negative and tobacco screening negative) 08/19/2024 2:00 PM EST Office Visit [facility] [address] [place] [address] Leighann Ordonez ANP Seizure disorder (CMS/HCC) (Primary Dx); Herpes 08/02/2024 Telephone [facility] [address] [place], [place] [phone] Arben Padilla MD New patient appt. from [...] Mass Index 22.5 10/21/2024 12:57 PM EDT Plan of Treatment Health Maintenance Due Date Last Done Comments Hepatitis B Vaccines (1 of + 3-dose series) 2007 COVID-19 Vaccine ( season) 2024 01/23/2021, 01/02/2021 Influenza Vaccine (#1) 2024 05/25/2023 SDOH Screening 10/14/2025 10/14/2024 Alcohol/Substance Use Screening 10/21/2025 10/21/2024 Depression Screening 10/21/2025 10/21/2024, 10/22/19 Family Planning (PISQ) 10/21/2025 10/21/2024 Tobacco Screening 10/21/2025 10/21/2024 Pap Smear 10/09/2027 10/08/2024 Cervical Cancer Screening 10/08/2029 HPV/Cotest 10/08/2029 10/08/2024, 02/04, 02/22/2022, Additional history exists DTaP/Tdap/Td Vaccines (2 - [...] Procedure Name Priority Date/Time Associated Diagnosis Comments PAP SMEAR Routine 10/08/2024 2:22 PM EST HPV DNA, LOW/HIGH RISK Routine 10/08/2024 2:22 PM EST BACTERIAL VAGINOSIS PANEL Routine 10/08/2024 1:38 PM EST CHLAMYDIA/N. GONORRHOEAE RNA, TMA, UROGENITAL Routine 10/08/2024 1:38 PM EST ZZZ HISTORICAL HEPATITIS C ANTIBODY Routine 02/22/2022 11:49 AM EDT from Last 3 Months or Most Recently Relevant to Health Maintenance Results * HPV DNA, Low/High Risk (10/08/2024 2:22 PM EST) HPV High Risk Negative Negative [facility] HPV Genotype 16 Negative Negative [facility] HPV Genotype 18 Negative Negative [facility] Comment:HPV testing performe d at [facility] (CLIA#[id number]), [address] [place] [address].Testing for HPV was performed using the Amaya LANI 6800system. The presence of HPV in the female genital tract isassociated with a number of diseases, including cervicalcarcinoma. The HPV DNA high risk pool tests for HPV 31, 33,35, 39, 45, 51, 52, 56, 58, 59, 66 and 68. The testing forHPV 16 and 18 genotypes has also been performed. A positiveresult indicates detection of nucleic acid sequences fromone or more subtypes, whereas a negative result indicatessuch sequences were not detected. 10/08/2024 2:22 PM EST 10/09/2024 6:50 AM EST us Generic External Data Provider LAB BLOOD ORDERAB LES Final Result [facility] [address] [place] [phone] * Pap Smear (10/08/2024 2:22 PM EST) 10/08/2024 2:22 PM EST 10/09/2024 6:50 AM EST Narrative [facility] - 10/11/2024 2:29 PM EST ----- ------- Name: Kitty Alfaro ? Age/Sex: 34/F ? : 1990 Unit#: [id number] ?? Attend Dr: Adam Briceno MD ?Re10/08/24 ?Status: DEP REF ? Location: HO.LNP ?Disch: ? ----- ------- SPEC : [id number] ? RECD: 10/09/24 ? STATUS: ??SOUT ? REQ NUM: [id number] ? AMARA: 10/08/24-1421 ? SUBM DR: Adam Briceno MD ? ENTERED: ??10/09/24 ?SP TYPE: Pap Smr ?OTHR : [facility] ? ORDERED: ??Pap Smear ? Interpretation ?? Satisfactory for evaluation. ?? Negative for intraepithelial lesion or malignancy. ?? No endocervical cells seen. ?? Coccobacilli consistent with shift in vaginal alma. ? HPV High Risk: ??Negative ? HPV Genotyping 16: ??Negative ?? HPV Genotyping 18: ??Negative ?Clinical Information LMP: Unknown date Previous PAP test: 02/23/22, ASCUS, HPV+ ? Material Received ?? Cervix Copies To: ?? [facility] ?? [address] ?? [place] [id number] ? Adam Briceno MD ?? [facility] ?? [address] [facility] [address] ?? [place] [address] ?? [phone] ----- ------- Signed (signature on file) SHUN Sanabria (ASCP) 10/11/24 1429 ? ----- ------- ? END OF REPORT ? Generic External Data Provider LAB CYTOLOGY ORDE RABLES Final Result Performing Organization Address [facility] Co de Phone Number [facility] [address] [place] [address] [phone] * (ABNORMAL) Bacterial Vaginosis (10/08/2024 1:38 PM EST) TRICHOMONAS VAGINALIS DETECTION BY PCR NOT DETECTED Not Detect [facility] BACTERIAL VAGINOSIS DETECTION BY PCR POSITIVE(A) Negative [facility] Comment:The BV organism targ ets of the Xpert Xpress MVP test can becommensal in women; Xpert Xpress MVP positive results forbacterial vaginosis should be considered in conjunction withother clinical and patient information to determine thedisease status. Organisms that are not detected by the XpertXpress MVP test have also been reported to be associatedwith BV and aerobic vaginitis.The Xpert Xpress MVP test performance has not been evaluatedin patients under the age of 14. NATTY GROUP DETECTION BY PCR NOT DETECTED Not Detect [facility] Natty glab krusei PCR NOT DETECTED Not Detect [facility] 10/08/2024 1:38 PM EST 10/08/2024 3:11 PM EST Generic External Data Provider LAB MICROBIOLOGY - GENERAL ORDERABLES Final Result Performing Organization Address [facility] Co de Phone Number [facility] [address] [place] [address] [phone] * Chlamydia/N. Gonorrhoeae RNA, TMA, Urogenitial (10/08/2024 1:38 PM EST) CT PCR NOT DETECTED Not Detect. [facility] Comment:A not detected test result does not exclude the possibilityof infection because test results can be affected byimproper specimen collection, concurrent antibiotic therapy,or the number of organisms in the specimen which may bebelow the sensitivity of the test. As with many diagnostictests, results from the Xpert CT/NG assay should beinterpreted in conjunction with other laboratory andclinical data available to the clinician.Xpert CT/NG performance has not been evaluated in patientsless than 14 years of age. The assay should not be used forthe evaluationof suspected sexual abuse or for other medico-legalindications. Additional testing is recommended in anycircumstance when false positive or false negative resultscould lead to adverse medical, social or psychologicalconsequences. NG PCR NOT DETECTED Not Detect. [facility] Comment:A not detected test result does not exclude the possibilityof infection because test results can be affected byimproper specimen collection, concurrent antibiotic therapy,or the number of organisms in the specimen which may bebelow the sensitivity of the test. As with many diagnostictests, results from the Xpert CT/NG assay should beinterpreted in conjunction with other laboratory andclinical data available to the clinician.Xpert CT/NG performance has not been evaluated in patientsless than 14 years of age. The assay should not be used forthe evaluationof suspected sexual abuse or for other medico-legalindications. Additional testing is recommended in anycircumstance when false positive or false negative resultscould lead to adverse medical, social or psychologicalconsequences. 10/08/2024 1:38 PM EST 10/08/2024 3:11 PM EST Narrative [facility] - 10/09/2024 11:52 AM EST Vaginal us Generic External Data Provider LAB MICROBIOLOGY - GENERAL ORDERABLES Final Result [facility] [address] [place], [place] [phone] * Hepatitis C Antibody (02/22/2022 11:49 AM EDT) Pathologist [facility] Hepatitis C Antibody Nonreactive Nonreactive [facility] Comment: Antibodies to HCV not detected; does not exclude early acute HCV infection. HIV AB/AG Nonreactive Nonreactive [facility] Comment: HIV-1 p24 Ag and/or [...] detection of this assay. ?? The [employer]ester HIV Ag/Ab Combo assay result and supplemental assay results should be interpreted in conjunction with the patient's clinical presentation, history and other laboratory results. ??If the results are inconsistent with clinical evidence, additional testing is suggested to confirm the result. Hepatitis B Surface Antigen Negative Negative [facility] 02/22/2022 11:4 9 AM EDT Gabi Joaquin HISTORICAL/NON ORDERABLE LABS Fi nal Result Performing Organization Address City/State/[facility] Co de Phone Number [facility] [address] from Last 3 Months or Most Recently Relevant to Health Maintenance Insurance [facility] C3 Care Teams Nut Threader Relationship Specialty Start Date End Date Tiera Shankar MD [address] [place] [phone] PCP - General Family Medicine 10/21/24
--- OUTSIDE RECORDS SUMMARY | 2024-10-21 15:37 | XMS_ITS | Encounter Summary ---
Author Organization [employer] Address [address] [facility] 7t [place] [address] Care Team Providers Care Medical Language Specialist Name Role Phone Unavailable Primary Care Provider Unavailabl e Reason for Visit * Reason Comments Pre-visit Planning SDOH screening negat sonia and tobacco screening negative Encounter Details Date Type Department Care Team ([facility] st Contact Info) Description 10/14/2024 Patient Outreach [facility] [address] [place] [address] Tiera Shankar MD [address] [place] [address] Pre-visit Planning (SDOH screening negative and tobacco screening negative) Social History Tobacco Use Types Packs/Day Years [...] PM EST documented as of this encounter Progress Notes * Cara Colmenares - 10/14/2024 9:02 AM EDT CC Cara placed successful outbound call to patient for pre-visit planning. Patient name and confirmed. Patient confirms appt date and time, and has transportation. Biggest concern for appointment at this time is none Patient advised to bring to appointment a photo id and insurance card. Appropriate screenings completed in anticipation of appointment. documented in this encounter Plan of Treatment Not on file documented as of this encounter Visit Diagnoses Not on filedocumented in this encounter
[2024-10-21 16:55] LABS: Alanine Aminotransferase 9 U/L (0-31); Albumin Level 4.2 g/dL (3.5-5.0); Alkaline Phosphatase 44 U/L (39-117); Anion Gap 10 (12-20); Aspartate Amino Transferase 21 U/L (5-31); Bilirubin Total 0.2 mg/dL (0.0-1.0); Blood Urea Nitrogen 6 mg/dL (9-16); Calcium 8.7 mg/dL (8.4-10.2); Carbon Dioxide 26 mmol/L (22-29); Chloride 106 mmol/L (96-108); Cholesterol 176 mg/dL (<200); Estimated Glomerular Filt Rate > 60; Glucose Random 94 mg/dL (60-115); HDL Cholesterol 62 mg/dL (>40); LDL Cholesterol Calculated 101 mg/dL (<100); Potassium 3.6 mmol/L (3.3-5.1); Sodium 138 mmol/L (135-145); Total Protein 7.6 g/dL (6.5-8.0); Triglycerides 69 mg/dL (<150)
[2024-10-22 02:43] LABS: CT PCR NOT DETECTED (Not Detect.); NG PCR NOT DETECTED (Not Detect.)
[2024-10-22 08:01] LABS: Syphilis Screen Nonreactive (Nonreactive)
[2024-10-22 08:06] LABS: HBsAGNum1 0.27 S/CO (0.00-0.99); HIV AB/AG Nonreactive (Nonreactive); HIV Num 1 0.07 S/CO (0.00-0.99); Hepatitis B Surface Antigen Negative (Negative); ~HepC Num1 0.46 S/CO (0.00-0.79); ~HepC Num1 0.59 S/CO (0.00-0.79); ~Hepatitis C Antibody Nonreactive (Nonreactive)
[2024-10-22 12:34] LABS: RPR Rapid Plasma Reagin NON-REACTIVE (NON-REACTIVE)
== END 2024-10-21 13:28 | disposition home or self-care (01) ==
LOC: HO.HHCL 13:27
PROVIDERS: Obstetrics & Gynecology; Visit Provider General Practice
DX: Z11.4 Encounter for screening for human immunodeficiency virus [HIV] (principal); Z11.3 Encounter for screening for infections with a predominantly sexual mode of transmission; N76.0 Acute vaginitis; B96.89 Other specified bacterial agents as the cause of diseases classified elsewhere; Z20.2 Contact with and (suspected) exposure to infections with a predominantly sexual mode of transmission
CPT/HCPCS: 36415; 80053; 80061; 86592; 86780; 86803; 87340; 87389; 87491; 87591

== ENCOUNTER 2025-02-20 09:42 | Outpatient (AMB) | payer MEDICAID, SELFPAY ==
--- NOTE | 2025-02-20 09:53 | A.OFFVIS_ITS ---
Vital Signs 02/20/25 09:54 Height 5 ft 1 in Intake Visit Reasons: 6M/ SZ Allergies No Known Allergies Allergy (Unknown, Verified 02/20/25 09:57) Medication List - Last Reconciled 02/20/25 by Rosanna Rivera CNP carbamazepine 200 mg PO BID valacyclovir (Valtrex) 500 mg PO BID 3 days HPI Comments Details: She was doing okay. No seizures. Taking carbamazepine twice a day. No medication side effects. No dizziness. Sleep was okay. Last seizure was 10/29/2022. Had seizure in sleep, woke up with bitten tongue and lip, and headache. Had been stressed at work. Did not miss medications. Had seizure 06/11/2020 after running out of medication 2 days earlier. Had seizure 01/2017 x3-4 seizures generalized, tonic-clonic. They occur at night in sleep if she forgets to take her medication. She has tongue bite and incontinence. Went to [facility]. First seizure on 12/03/2012 during the night. Had a generalized tonic- clonic seizure witnessed by her boyfriend. She was shaking all over and convulsing, eyes rolled up, frothing at the mouth, had bitten her tongue and lip. No incontinence. Lasted several minutes and was followed by prolonged confusion for a while. She has no recall of it. She was confused enough to refuse going to hospital when transmission inspector arrived. Later on, she went [place] [facility] [place] she [place] normal labs and normal non-contrast CT of the brain. She reports no previous hx of staring spells, febrile convulsions or seizures, or fainting spells. No hx of head trauma. No family hx of seizures. She was not using drugs or alcohol at the time and was not sleep deprived. She has had total of at least 4 witnessed nocturnal seizures and maybe 3 more unwitnessed seizures. She has felt dizziness with lightheadedness and presyncopal feeling, off and on, since seizure. [facility] Medical History (Updated 02/20/25 @ 09:56 by Rosanna Rivera CNP) Hx of CEZAR II (cervical intraepithelial neoplasia II) Seizure Surgical History Hx of tubal ligation Social History Household Members: Children Housing: Apartment Alcohol intake: current Alcohol intake frequency: a few times a month Patient Tobacco Use Status: Never used Tobacco Current occupational status: employed Current occupation: [employer] Sexual orientation: Straight/Heterosexual Gender identity: Female Female Reproductive History Menstrual Age of Menarche: 9 Review of Systems Const Denies chills, Denies daytime sleepiness, Denies difficulty sleeping, Denies fatigue, Denies fever(s), Denies frequent falls, Denies headache(s), Denies increased appetite, Denies poor appetite, Denies snoring, Denies weakness, Denie s weight gain and Denies weight loss Eyes Denies loss of vision ENT Denies vertigo, Denies dizziness, Denies headache(s) and Denies neck pain Card Denies chest pain at rest, Denies chest pain with activity, Denies syncope, Denies leg edema, Denies palpitations, Denies dyspnea and Denies dyspnea on exertion Resp Denies cough, Denies dyspnea, Denies dyspnea on exertion and Denies snoring GI Denies abdominal pain, Denies constipation, Denies heartburn, Denies diarrhea and Denies nausea Denies urinary frequency, Denies urinary incontinence and Denies urinary urgency Musc Denies abnormal gait, Denies back pain, Denies myalgias, Denies arthralgias, Denies neck pain, Denies numbness and Denies tingling Neuro Denies abnormal gait, Denies vertigo, Denies dizziness, Denies syncope, Denies frequent falls, Denies headache(s), Denies lack of coordination, Denies loss of vision, Denies memory loss, Denies numbness, Denies Other visual disturbances, Denies restless legs, Denies seizure-like activity, Denies tingling, Denies paresthesias, Denies tremor(s) and Denies weakness Psych Denies anxiety, Denies depression, Denies auditory hallucinations, Denies memory loss and Denies visual hallucinations Endo Denies fatigue and Denies palpitations Physical Exam Const Other: General Appearance:? normal, in no acute distress. Heart:? S1, S2 normal, no murmurs. Lungs:? clear anteriorly and posteriorly. Musculoskeletal:? normal. Extremities:? no edema. Psych:? alert, oriented, cognitive function intact, cooperative with exam. Neuro Other: Abnormal Neurological Findings:?none.? Mental Status: alert and oriented X 3. Normal attention, orientation, memory, and affect. Cranial Nerves: Pupils are equal, round, and reactive to light. External ocular muscles are intact. Visual fernandez are full, no ptosis. Face is symmetrical, no facial weakness or droop. Facial sensations are normal. Tongue protrudes in midline. Palate elevates symmetrically. Shoulder shrugging is normal Motor Examination: Normal muscle tone, bulk and strength. No atrophy or fasciculations. No drift of the extended upper extremities. DTR 2+. Plantars are flexor. Straight Leg Raisin degrees. Sensory Exam: Normal light touch, temperature, pinprick, vibration, and joint- position sensations. Rhomberg sign is absent. Coordination: No ataxia. No titubation. Nytypn-sd-sagt, ynnd-xxbs-sxmb test, and rapid alternating movements were normal. Gait Exam: Within normal limits. Cerebellar Signs: [id number] and dhcp-or-txqc is normal. No dysdiadochokinesia. Extrapyramidal System: No tremor, rigidity with normal facial expressions. No bradykinesia. No bradyphrenia. Normal arm swing and posture. No propulsion or retropulsion. Speech: Normal. No dysphasia or dysarthria. Results Reviewed Results Reviewed: Laboratory Tests 01/24/24 13:36 Carbamazepine 7.2 Assessment & Plan Assessment & Plan (1) Seizure: Code(s): R56.9 - Unspecified convulsions Category: Medical Plan: Continue carbamazepine 200mg 1 tablet twice a day. She was educated on the importance of medication compliance and risk associated with missed doses, including seizures. Reviewed lab ordered. Orders: Orders Carbamazepine Tegretol Today R56.9 - Unspecified convulsions Coding Level of Care Code Est Pt Level 3 (28899) Diagnoses Seizure R56.9
--- OUTSIDE RECORDS SUMMARY | 2025-02-20 10:03 | XMS_ITS | Encounter Summary ---
Author Organization [employer] [facility] [employer] Address [address] [facility] [address] [place] [address] Care Team Providers Care Soap Boiler Name Role Phone Tiera Shankar MD Primary Care Provider [phone] Encounter Details Date Type Department Care Team (Late st Contact Info) Description 11/06/2024 Orders Only [facility] [address] [place], [place] [phone] Moon Florian Social History Tobacco Use Types Packs/Day Years [...] on file documented as of this encounter Procedures Procedure Name Priority Date/Time Associated Diagnosis Comments COLPOSCOPY Routine 04/06/2022 12:00 AM EDT documented in this encounter Results * Colposcopy (04/06/2022 12:00 AM EDT) us Historical Provider MD IN CLINIC/BEDSIDE ORDERAB LES Edited Result - Final [facility] [address] [place] [phone] documented in this encounter Visit Diagnoses Not on filedocumented in this encounter Additional Health Concerns Assessment Noted Time PHQ-9 Depression Total Score: 0 10/22/19 25 1:01 PM EDT documented as of this encounter Care Teams Soap Boiler Relationship Specialty Start Date End Date Tiera Shankar MD [address] [place] [address] PCP - General Family Medicine 10/21/24 documented as of this encounter
== END 2025-02-20 10:03 | disposition home or self-care (01) ==
LOC: HO.HSM 09:43
PROVIDERS: PCP Nurse Practitioner Primary Care; Referring Provider Nurse Practitioner Primary Care; Visit Provider Registered Nurse
DX: R56.9 Unspecified convulsions (principal)
CPT/HCPCS: 99213

== ENCOUNTER → 2025-02-20 09:42 | Outpatient (BNVA) | payer MEDICAID, SELFPAY | PROVIDERS: PCP Nurse Practitioner Primary Care; Referring Provider Nurse Practitioner Primary Care; Visit Provider Registered Nurse | DX: R55 Syncope and collapse (principal); R56.9 Unspecified convulsions | CPT/HCPCS: 99212 ==

== ENCOUNTER 2025-03-24 14:39 | Outpatient (REF) | payer MEDICAID, SELFPAY ==
--- OUTSIDE RECORDS SUMMARY | 2025-03-24 15:21 | XMS_ITS | Encounter Summary ---
Author Organization [employer] Address [address] [facility] [address] [place] [address] Care Team Providers Care Machine Filler Servicer Name Role Phone Tiera Shankar MD Primary Care Provider [phone] Encounter Details Date Type Department Care Team (Late st Contact Info) Description 11/06/2024 Orders Only [facility] [address] [place], [place] [phone] Moon Florian Social History Tobacco Use Types [...] CLINIC/BEDSIDE ORDERAB LES Edited Result - Final [facility] [address] [place] [phone] documented in this encounter Visit Diagnoses Not on filedocumented in this encounter Additional Health Concerns Assessment Noted Time PHQ-9 Depression Total Score: 0 10/22/19 25 1:01 PM EDT documented as of this encounter Care Teams Machine Filler Servicer Relationship Specialty Start Date End Date Tiera Shankar MD [address] [place] [address] PCP - General Family Medicine 10/21/24 documented as of this encounter
[2025-03-24 17:55] LABS: CT PCR Urine NOT DETECTED (Not Detect.); NG PCR Urine NOT DETECTED (Not Detect.)
[2025-03-24 21:32] LABS: Bacterial Vaginosis PCR POSITIVE (Negative); Candida Group PCR DETECTED (Not Detect); Candida glab krusei PCR NOT DETECTED (Not Detect); Trichomonas vaginalis PCR NOT DETECTED (Not Detect)
[2025-03-25 07:57] LABS: Syphilis Screen Nonreactive (Nonreactive)
[2025-03-25 08:10] LABS: HBS Num1 3.07 mIU/mL (0-7.99); HBc Num1 0.19 S/CO (0.00-0.79); HBsAGNum1 0.66 S/CO (0.00-0.99); HIV Num 1 0.05 S/CO (0.00-0.99); Hepatitis B Surface Antigen Negative (Negative); ~HepC Num1 0.43 S/CO (0.00-0.79); ~Hepatitis B Surface Antibody NONREACTIVE (Nonreactive); ~Hepatitis C Antibody Nonreactive (Nonreactive)
== END 2025-03-24 14:40 | disposition home or self-care (01) ==
LOC: HO.HHCL 14:39
PROVIDERS: PCP Nurse Practitioner Primary Care; Visit Provider Family Medicine
DX: Z11.3 Encounter for screening for infections with a predominantly sexual mode of transmission (principal); Z11.8 Encounter for screening for other infectious and parasitic diseases; Z11.4 Encounter for screening for human immunodeficiency virus [HIV]; Z11.59 Encounter for screening for other viral diseases; Z11.2 Encounter for screening for other bacterial diseases; R30.0 Dysuria
CPT/HCPCS: 81515; 86704; 86706; 86780; 86803; 87340; 87389; 87491; 87591